=== PATIENT | female | born 1985 | race Caucasian/White ===

== ENCOUNTER 2016-12-31 20:53 | Inpatient (IN) | payer MEDICAID ==
[~2016-12-31] VITALS: Ht 154.9 cm; Wt 65.0 kg
[2016-12-31 21:38] LABS: BASOPHIL % 0.5 % (0-2); PLATELET COUNT 299 x10^3mcL (130-400)
[2016-12-31 21:39] LABS: RED CELL DISTRIBUTION WIDTH 14.9 % (11.5-14.5)
[2016-12-31 21:41] LABS: CALCIUM 9.1 mg/dL (8.5-10.1); CARBON DIOXIDE 27.8 mmol/L (21-32); CHLORIDE SERUM 102 mmol/L (98-107); GFR1 > 60 mL/min; GLUCOSE SERUM 134 mg/dL (74-106); SODIUM SERUM 141 mmol/L (136-145)
[2016-12-31 21:53] LABS: ALBUMIN 4.5 g/dL (3.4-5.0); ALKALINE PHOSPHATASE 96 U/L (46-116); ALT/SGPT 23 U/L (14-59); AST/SGOT 13 U/L (15-37); BILIRUBIN TOTAL 0.6 mg/dL (0.20-1.00); T4(THYROXINE) 8.5 ug/dL (4.7-13.3)
[2016-12-31 21:55] LABS: TOTAL PROTEIN, SERUM 8.7 g/dL (6.4-8.2)
[2017-01-01] MEDS ORDERED: LOPRESSOR50 M1 PO (00:17)
[2017-01-01 01:01] VITALS: BP 105/75
[2017-01-01 02:00] LABS: CHOLESTEROL/HDL RATIO 3.9; MAGNESIUM 2.4 mg/dL (1.8-2.4); PHOSPHOROUS 3.5 mg/dL (2.5-4.9)
[2017-01-01 06:38] VITALS: BP 92/64
[2017-01-01 07:04] LABS: CALCIUM 8.3 mg/dL (8.5-10.1); CARBON DIOXIDE 25.9 mmol/L (21-32); CHLORIDE SERUM 110 mmol/L (98-107); CREATININE SERUM 0.7 mg/dL (0.6-1.0); GFR1 > 60 mL/min; GLUCOSE SERUM 101 mg/dL (74-106); POTASSIUM SERUM 4.2 mmol/L (3.5-5.1); SODIUM SERUM 141 mmol/L (136-145)
[2017-01-01 10:25] VITALS: BP 102/74
[2017-01-01 12:57] LABS: UA SPECIFIC GRAVITY <=1.005 (1.005-1.035); microscopic required? YES; urine erythrocyte NEGATIVE (NEGATIVE)
[2017-01-01 13:04] LABS: AMPHETAMINE QUAL UR NONE DETECTED (NEG <=1000)
[2017-01-01 15:02] VITALS: BP 136/82
[2017-01-01 18:24] VITALS: BP 101/66
[2017-01-01 22:33] VITALS: BP 99/71
[2017-01-02 06:35] VITALS: BP 105/74
[2017-01-02 06:45] LABS: CALCIUM 8.5 mg/dL (8.5-10.1); CARBON DIOXIDE 25.6 mmol/L (21-32); CHLORIDE SERUM 109 mmol/L (98-107); CREATININE SERUM 0.6 mg/dL (0.6-1.0); GFR1 > 60 mL/min; GLUCOSE SERUM 97 mg/dL (74-106); POTASSIUM SERUM 3.7 mmol/L (3.5-5.1); SODIUM SERUM 144 mmol/L (136-145)
[2017-01-02 07:14] LABS: BASOPHIL % 0.5 % (0-2); PLATELET COUNT 252 x10^3mcL (130-400)
[2017-01-02 08:55] VITALS: BP 92/65
[2017-01-02 12:45] VITALS: BP 97/66
[2017-01-02 18:02] VITALS: BP 91/62
[2017-01-02] MEDS ORDERED: LEVAQUIN500 M1 PO (19:11)
[2017-01-02] MEDS ORDERED: LAC PO (19:12)
[2017-01-02] MEDS ORDERED: TOP50 PO (19:48)
[2017-01-02] MEDS ORDERED: COU10 PO (19:48)
[2017-01-02] MEDS ORDERED: GOOD SENSE OMEP20 MG PO (20:21)
[2017-01-02 21:06] VITALS: Ht 154.9 cm; Wt 65.0 kg
== END 2017-01-02 21:23 | disposition home or self-care (01) | DRG 201 ==
LOC: ED 20:53 → DU 23:41
PROVIDERS: Emergency Medicine; ADMIT Family Medicine
DX: I48.91 Unspecified atrial fibrillation (principal); N17.0 Acute kidney failure with tubular necrosis; I50.43 Acute on chronic combined systolic (congestive) and diastolic (congestive) heart failure; M94.0 Chondrocostal junction syndrome [Tietze]; N39.0 Urinary tract infection, site not specified; E87.6 Hypokalemia; E03.9 Hypothyroidism, unspecified; I27.2 Other secondary pulmonary hypertension; E78.5 Hyperlipidemia, unspecified; Z79.01 Long term (current) use of anticoagulants; I05.0 Rheumatic mitral stenosis; Z68.27 Body mass index [BMI] 27.0-27.9, adult
CPT/HCPCS: 80307; 83880; J1644; J1885; J1956; J2060; J3490; J7030

== ENCOUNTER → 2017-01-04 | Outpatient (CLI) | payer SELFPAY ==
[~2017-01-04] MED LIST: COU10 PO; GOOD SENSE OMEP20 MG PO; LAC PO; LEVAQUIN500 M1 PO; LOPRESSOR50 M1 PO; TOP50 PO
== END | disposition home or self-care (01) ==
LOC: LB 17:29
DX: I48.91 Unspecified atrial fibrillation (principal)

== ENCOUNTER 2017-01-05 19:37 | Emergency (ER) | payer MEDICAID ==
[2017-01-05 20:12] LABS: CARBON DIOXIDE 28.9 mmol/L (21-32); CHLORIDE SERUM 104 mmol/L (98-107); CREATININE SERUM 0.9 mg/dL (0.6-1.0); GFR1 > 60 mL/min; GLUCOSE SERUM 100 mg/dL (74-106); POTASSIUM SERUM 4.1 mmol/L (3.5-5.1); SODIUM SERUM 139 mmol/L (136-145)
[2017-01-05 20:17] LABS: ALKALINE PHOSPHATASE 83 U/L (46-116); ALT/SGPT 20 U/L (14-59); AST/SGOT 16 U/L (15-37); BILIRUBIN TOTAL 0.37 mg/dL (0.20-1.00); TOTAL PROTEIN, SERUM 7.8 g/dL (6.4-8.2)
[2017-01-05 20:22] LABS: BASOPHIL % 0.4 % (0-2); PLATELET COUNT 284 x10^3mcL (130-400)
[2017-01-05 20:30] LABS: RED CELL DISTRIBUTION WIDTH 15.3 % (11.5-14.5)
[2017-01-06 00:14] VITALS: BP 116/63
== END 2017-01-06 00:14 | disposition home or self-care (01) ==
LOC: ED 19:37
PROVIDERS: Emergency Medicine
DX: R07.9 Chest pain, unspecified (principal); I05.0 Rheumatic mitral stenosis; Z88.1 Allergy status to other antibiotic agents
CPT/HCPCS: 83880; J3010; Q0092

== ENCOUNTER 2017-02-05 22:54 | Emergency (ER) | payer MEDICAID ==
[2017-02-05 23:45] LABS: BASOPHIL % 0.6 % (0-2); PLATELET COUNT 367 x10^3mcL (130-400); RED CELL DISTRIBUTION WIDTH 15.5 % (11.5-14.5)
[2017-02-05 23:56] LABS: CALCIUM 8.5 mg/dL (8.5-10.1); CARBON DIOXIDE 30.9 mmol/L (21-32); CHLORIDE SERUM 105 mmol/L (98-107); CREATININE SERUM 0.8 mg/dL (0.6-1.0); GFR1 > 60 mL/min; GLUCOSE SERUM 80 mg/dL (74-106); POTASSIUM SERUM 3.8 mmol/L (3.5-5.1); SODIUM SERUM 141 mmol/L (136-145)
[2017-02-06] LABS: ALBUMIN 3.7 g/dL (3.4-5.0); ALKALINE PHOSPHATASE 94 U/L (46-116); ALT/SGPT 23 U/L (14-59); AMYLASE 76 U/L (25-115); AST/SGOT 20 U/L (15-37); LIPASE 129 IU/L (73-393); TOTAL PROTEIN, SERUM 7.2 g/dL (6.4-8.2)
[2017-02-06 00:47] LABS: microscopic required? YES; urine erythrocyte 3+ (NEGATIVE)
[2017-02-06 02:50] VITALS: BP 87/60
== END 2017-02-06 02:51 | disposition home or self-care (01) ==
LOC: ED 22:54
PROVIDERS: Emergency Medicine
DX: R10.33 Periumbilical pain (principal); I49.9 Cardiac arrhythmia, unspecified; I05.9 Rheumatic mitral valve disease, unspecified; Z79.899 Other long term (current) drug therapy

== ENCOUNTER 2017-03-06 01:45 | Emergency (ER) | payer MEDICAID ==
[2017-03-06 02:34] LABS: BASOPHIL % 0.6 % (0-2); PLATELET COUNT 343 x10^3mcL (130-400)
[2017-03-06 02:37] LABS: CALCIUM 8.9 mg/dL (8.5-10.1); CARBON DIOXIDE 30.1 mmol/L (21-32); CHLORIDE SERUM 106 mmol/L (98-107); CREATININE SERUM 0.8 mg/dL (0.6-1.0); GFR1 > 60 mL/min; GLUCOSE SERUM 98 mg/dL (74-106); POTASSIUM SERUM 3.7 mmol/L (3.5-5.1); SODIUM SERUM 141 mmol/L (136-145)
[2017-03-06 02:40] LABS: RED CELL DISTRIBUTION WIDTH 15.9 % (11.5-14.5)
[2017-03-06 02:42] LABS: ALBUMIN 3.7 g/dL (3.4-5.0); ALKALINE PHOSPHATASE 83 U/L (46-116); ALT/SGPT 15 U/L (14-59); AST/SGOT 12 U/L (15-37); BILIRUBIN TOTAL 0.31 mg/dL (0.20-1.00); TOTAL PROTEIN, SERUM 7.4 g/dL (6.4-8.2)
[2017-03-06 02:49] LABS: CK-MB < 0.5 ng/mL (0-3.6); CREATINE KINASE 52 U/L (26-192)
[2017-03-06 04:45] VITALS: BP 95/63
== END 2017-03-06 04:30 | disposition home or self-care (01) ==
LOC: ED 01:45
PROVIDERS: Emergency Medicine
DX: R00.2 Palpitations (principal); I48.91 Unspecified atrial fibrillation; Z79.01 Long term (current) use of anticoagulants; Z88.1 Allergy status to other antibiotic agents
CPT/HCPCS: 83880; J3490

== ENCOUNTER 2017-06-08 22:57 | Emergency (ER) | payer OTHER ==
[2017-06-09 02:29] LABS: BASOPHIL % 1.6 % (0-2); PLATELET COUNT 331 x10^3mcL (130-400)
[2017-06-09 02:30] LABS: RED CELL DISTRIBUTION WIDTH 15.7 % (11.5-14.5)
[2017-06-09 02:41] LABS: CHLORIDE SERUM 106 mmol/L (98-107); CREATININE SERUM 0.7 mg/dL (0.6-1.0); GFR1 > 60 mL/min; GLUCOSE SERUM 95 mg/dL (74-106); POTASSIUM SERUM 3.8 mmol/L (3.5-5.1); SODIUM SERUM 143 mmol/L (136-145)
[2017-06-09 02:58] LABS: ALBUMIN 3.6 g/dL (3.4-5.0); ALKALINE PHOSPHATASE 84 U/L (46-116); ALT/SGPT 19 U/L (14-59); AST/SGOT 13 U/L (15-37); BILIRUBIN TOTAL 0.32 mg/dL (0.20-1.00); CK-MB < 0.5 ng/mL (0-3.6); CREATINE KINASE 73 U/L (26-192); TOTAL PROTEIN, SERUM 7.6 g/dL (6.4-8.2)
[2017-06-09 04:16] VITALS: BP 107/65
== END 2017-06-09 04:16 | disposition home or self-care (01) ==
LOC: ED 22:57
PROVIDERS: Emergency Medicine
DX: I48.91 Unspecified atrial fibrillation (principal); Z86.79 Personal history of other diseases of the circulatory system; Z79.01 Long term (current) use of anticoagulants; Z88.1 Allergy status to other antibiotic agents
CPT/HCPCS: 36415; 83880; J3490; Q0092

== ENCOUNTER 2017-06-25 15:22 | Emergency (ER) | payer OTHER ==
[~2017-06-25] VITALS: Ht 154.9 cm; Wt 67.6 kg
[2017-06-25 15:59] LABS: BASOPHIL % 0.4 % (0-2); PLATELET COUNT 355 x10^3mcL (130-400)
[2017-06-25 16:04] LABS: RED CELL DISTRIBUTION WIDTH 17.1 % (11.5-14.5)
[2017-06-25 16:10] LABS: CALCIUM 8.8 mg/dL (8.5-10.1); CARBON DIOXIDE 26.3 mmol/L (21-32); CHLORIDE SERUM 105 mmol/L (98-107); CREATININE SERUM 0.8 mg/dL (0.6-1.0); GFR1 > 60 mL/min; GLUCOSE SERUM 146 mg/dL (74-106); POTASSIUM SERUM 3.6 mmol/L (3.5-5.1); SODIUM SERUM 141 mmol/L (136-145)
[2017-06-25 16:57] LABS: T4(THYROXINE) 9.8 ug/dL (4.7-13.3)
[2017-06-25 17:42] VITALS: BP 106/79
== END 2017-06-25 17:43 | disposition home or self-care (01) ==
LOC: ED 15:22
PROVIDERS: Emergency Medicine
DX: I48.2 Chronic atrial fibrillation (principal); I05.9 Rheumatic mitral valve disease, unspecified
CPT/HCPCS: 83880; J3475; J3490; J7030; Q0092

== ENCOUNTER 2017-10-21 11:35 | Emergency (ER) | payer OTHER ==
[~2017-10-21] VITALS: Ht 152.4 cm; Wt 68.0 kg
[2017-10-21 11:43] VITALS: Ht 152.4 cm; Wt 68.0 kg
[2017-10-21 13:30] LABS: BASOPHIL % 0.6 % (0-2)
[2017-10-21 13:34] LABS: PLATELET COUNT 401 x10^3mcL (130-400)
[2017-10-21 13:43] LABS: CALCIUM 8.9 mg/dL (8.5-10.1); CARBON DIOXIDE 27.7 mmol/L (21-32); CHLORIDE SERUM 105 mmol/L (98-107); CREATININE SERUM 0.6 mg/dL (0.6-1.0); GFR1 > 60 mL/min; GLUCOSE SERUM 92 mg/dL (74-106); POTASSIUM SERUM 4.5 mmol/L (3.5-5.1); SODIUM SERUM 141 mmol/L (136-145)
[2017-10-21 13:48] LABS: ALBUMIN 3.8 g/dL (3.4-5.0); ALKALINE PHOSPHATASE 102 U/L (46-116); ALT/SGPT 31 U/L (14-59); AST/SGOT 23 U/L (15-37); BILIRUBIN TOTAL 0.35 mg/dL (0.20-1.00); CHOLESTEROL 155 mg/dL (<200); HDL CHOLESTEROL 39 mg/dL (40-60); LIPASE 119 IU/L (73-393); TOTAL PROTEIN, SERUM 7.7 g/dL (6.4-8.2); TRIGLYCERIDES 116 mg/dL (<150)
[2017-10-21 13:58] LABS: FREE T4 1.07 ng/dL (0.76-1.46); FREE THYROXINE INDEX 3.5 ug/dL (1.4-4.5); T4(THYROXINE) 10.1 ug/dL (4.7-13.3)
[2017-10-21 14:00] LABS: T3 TOTAL 1.18 ng/mL
[2017-10-21 14:42] VITALS: BP 100/66
== END 2017-10-21 14:42 | disposition home or self-care (01) ==
LOC: ED 11:35
PROVIDERS: Specialist
DX: R00.2 Palpitations (principal); R06.02 Shortness of breath; Z88.1 Allergy status to other antibiotic agents
CPT/HCPCS: 36415; 83880; 84439; Q0092